=== PATIENT | male | born 1955 | race Caucasian/White ===

== ENCOUNTER 2017-08-21 11:15 | Emergency (ER) | payer BC ==
[2017-08-21 11:25] VITALS: BP 197/89
--- NOTE | 2017-08-21 13:30 | UC ---
Ear Complaint HPI - HPI Summary HPI Summary: 62 y/o male with 3 day history of feeling "maria t", c/o L ear pain, wheezing this AM which cleared with coughing, neck pain starting sunday radiating into scapula, cough= clear phlegm, + chills/ ? fever at night, none during day. L ear pain 3/10, L neck pain = dull ache, over shoulder. cough worse in AM, no selling, no sinus congestions, h/o IA 3 years ago following w Dr berger, last EKG 03/2017. no h/o asthma, smoking. - History of Current Complaint Chief Complaint: UCGeneralIllness Stated Complaint: ACHES, AND EAR ACHE Time Seen by Provider: 08/21/17 12:39 Hx Obtained From: Patient Onset/Duration: Gradual Onset, Lasting Days Severity Initially: Mild Severity Currently: Mild Pain Intensity: 1 Pain Scale Used: 0-10 Numeric - Allergies/Home Medications Allergies/Adverse Reactions: Allergies Allergy/AdvReac Type Severity Reaction Status Date / Time latex Allergy Hives Verified 08/21/17 14:33 Home Medications: Home Medications Cholecalciferol (Vitamin D3) [Vitamin D3] 2,000 mg PO BEDTIME 08/21/17 [History Confirmed 08/21/17] Metoprolol Tartrate 75 mg PO BEDTIME 08/21/17 [History Confirmed 08/21/17] PMH/Surg Hx/FS Hx/Imm Hx Previously Healthy: Yes - Surgical History Surgical History: Yes Surgery Procedure, Year, and Place: HERNIA REPAIR [id number]. BUNIONECTOMY- RIGHT [id number] - Social History Alcohol Use: None Substance Use Type: None Smoking Status (MU): Never Smoked Tobacco - Immunization History Most Recent Influenza Vaccination: Fall 2013 Most Recent Tetanus Shot: unk Most Recent Pneumonia Vaccination: NEVER Review of Systems Constitutional: Chills, Fatigue ENT: Ear Ache Respiratory: Cough, Other - wheezing Is Patient Immunocompromised?: No All Other Systems Reviewed And Are Negative: Yes Physical Exam Triage Information Reviewed: Yes Appearance: Well-Appearing, No Pain Distress, Well-Nourished Vital Signs: Initial Vital Signs Temp 96.3 F 08/21/17 11:21 Pulse 72 08/21/17 11:21 Resp 20 08/21/17 11:21 BP 197/89 08/21/17 11:21 Pulse Ox 99 03/20/18 11:21 Vital Signs Reviewed: Yes Eyes: Positive: Conjunctiva Clear ENT: Positive: Pharyngeal erythema - minimal, TM dull - fluid behind TM L ear, minimal erythema around TM., Uvula midline. Negative: Nasal drainage, Sinus tenderness Neck: Positive: Supple, No Lymphadenopathy, Tenderness @ - tenderness along SCM L side. Negative: Nuchal Rigidity, Enlarged Nodes @ Respiratory: Positive: Chest non-tender, Lungs clear, Normal breath sounds, No respiratory distress, No accessory muscle use. Negative: Crackles, Rhonchi, Stridor, Wheezing Cardiovascular: Positive: No Murmur, Pulses Normal, Other: - irregularly irregular rate. Abdomen Description: Negative: CVA Tenderness (R), CVA Tenderness (L) Psychological Exam: Normal Skin Exam: Normal Ear Complaint Course/Dx - Course Course Of Treatment: EKG reviewed with Dr. Foster, last EKG 2013- changes with OR interval, T changes, irregular rate, patient sent to ER for further evaluation. - Differential Dx/Diagnosis Provider Diagnoses: L neck pain Discharge - Sign-Out/Discharge Documenting (check all that apply): Discharge - Discharge Plan Condition: Good Disposition: HOME Patient Education Materials: Chest Pain (ED) Referrals: Sherrell VARGAS,Cristofer Jones [Primary Care Provider] - Kailash Mccann MD [Medical Doctor] - Additional Instructions: - Patient to follow up in ER for abnormal EKG findings - Billing Disposition and Condition Condition: GOOD Disposition: HOME
== END 2017-08-21 13:22 | disposition home or self-care (01) ==
LOC: UCEAST 11:15
DX: M54.2 Cervicalgia (principal); M25.512 Pain in left shoulder; I47.1 Supraventricular tachycardia; I45.10 Unspecified right bundle-branch block; H92.02 Otalgia, left ear; R05 Cough; R53.83 Other fatigue; Z91.040 Latex allergy status
CPT/HCPCS: 93005; 99211; G0463

== ENCOUNTER 2017-08-21 14:29 | Emergency (ER) | payer BC ==
[2017-08-21 16:00] LABS: INR 0.96 (0.77-1.02)
[2017-08-21 16:14] LABS: EGFR Non-African American 57.3 (>60)
--- NOTE | 2017-08-21 16:23 | RAD ---
HISTORY: Left-sided neck pain, flulike symptoms COMPARISONS: April 23, 2014 VIEWS: 1: frontal portable view of the chest at 3:59 PM FINDINGS: LINES AND TUBES: None. CARDIOMEDIASTINAL SILHOUETTE: The cardiac silhouette is mildly enlarged. The cardiomediastinal silhouette is otherwise normal for portable technique. PLEURA: The costophrenic angles are sharp. No pleural abnormalities are noted. LUNG PARENCHYMA: The lungs are clear. ABDOMEN: The upper abdomen is clear. There is no subphrenic gas. BONES AND SOFT TISSUES: No bone or soft tissue abnormalities are noted. IMPRESSION: MILD CARDIOMEGALY
[2017-08-21 16:24] LABS: ABS Basophils 0 10^3/ul (0-0.2); ABS Eosinophils 0 10^3/ul (0-0.6); ABS Lymphocytes 1.2 10^3/ul (1.0-4.8); ABS Monocytes 0.6 10^3/ul (0-0.8); ABS Neutrophils 5.9 10^3/ul (1.5-7.7); ABS Nucleated RBC 0 10^3/ul; Eosinophil % 0.5 % (0-6); Hematocrit 43 % (42-52); Hemoglobin 14.4 g/dl (14.0-18.0); Lymphocyte % 15.1 % (25-47); Mean Corpuscular HGB Conc 33 g/dl (31-36); Mean Corpuscular Hemoglobin 30 pg (27-31); Mean Corpuscular Volume 91 fL (80-94); Mean Platelet Volume 12 um3 (7.4-10.4); Nucleated Red Blood Cells % 0; Platelet Count 90 10^3/ul (150-450); Red Blood Count 4.76 10^6/ul (4.0-5.4); Red Cell Distribution Width 13 % (10.5-15); White Blood Count 7.8 10^3/ul (3.5-10.8)
[2017-08-21] MEDS ORDERED: NS 0.9% 1000 ML* 1,000 ML IV ONE (16:51)
[2017-08-21] MEDS ORDERED: Iodixanol* (CONTRAST) 320 MG/ML 100 ML SDV IV ONE (17:14)
--- NOTE | 2017-08-21 17:38 | RAD ---
HISTORY: Left upper chest pain, neck pain COMPARISONS: None TECHNIQUE: Multiple contiguous axial CT scans of the chest were obtained after the administration of nonionic intravenous contrast, timed to the pulmonary arterial phase of contrast enhancement.. Coronal and sagittal multiplanar reformations are also submitted for review. FINDINGS: NECK AND THYROID: The lower neck and thyroid are unremarkable. CHEST WALL: There is no lower cervical, axillary, or supraclavicular lymphadenopathy by size criteria. HEART AND PERICARDIUM: There is right atrial and right ventricular enlargement. A coronary stent is noted. AORTA AND PULMONARY VASCULATURE: There is no pulmonary arterial filling defect to suggest pulmonary embolism. There is no linear filling defect within the aorta to suggest aortic dissection. There is fusiform enlargement of the pulmonary arteries bilaterally. MEDIASTINUM: There is no mediastinal lymphadenopathy by size criteria. LORIE: There is no hilar lymphadenopathy by size criteria. AIRWAY AND ESOPHAGUS: The esophagus is patulous. LUNG PARENCHYMA: The lungs are clear. PLEURA: No pleural abnormalities are noted. UPPER ABDOMEN: The upper abdomen is unremarkable. BONES AND SOFT TISSUES: Mild degenerative changes are noted OTHER: None. IMPRESSION: NO PULMONARY ARTERIAL FILLING DEFECT TO SUGGEST PULMONARY EMBOLISM. THERE IS RIGHT HEART ENLARGEMENT WITH ENLARGEMENT OF THE PULMONARY ARTERIES SUGGESTIVE OF PULMONARY ARTERIAL HYPERTENSION.
--- NOTE | 2017-08-21 18:13 | RAD ---
HISTORY: Neck pain COMPARISONS: None TECHNIQUE: Multiple contiguous axial CT scans were obtained of the head, before and after, and of the neck after the administration of nonionic intravenous contrast timed to the systemic arterial phase of contrast enhancement. Coronal and sagittal multiplanar reformations are submitted for review. Multiple 3-D maximum intensity projection reconstructions are also submitted for review. FINDINGS: CTA NECK: AORTIC ARCH: There is a normal three-vessel branching pattern of the aortic arch. There is no ostial or proximal stenosis of the cephalic great vessels. RIGHT VERTEBRAL ARTERY: The right vertebral artery is patent along its course, without stenosis. LEFT VERTEBRAL ARTERY: The left vertebral artery is patent along its course, without stenosis. DOMINANCE: The vertebral arteries are codominant. RIGHT COMMON CAROTID ARTERY: The right common carotid artery is patent. The right carotid bifurcation occurs at C3-C4 RIGHT INTERNAL CAROTID ARTERY: There is no right internal carotid artery stenosis by NASCET criteria. RIGHT EXTERNAL CAROTID ARTERY: The right external carotid artery is unremarkable. LEFT COMMON CAROTID ARTERY: The left common carotid artery is patent. The left carotid bifurcation occurs at C3-C4 LEFT INTERNAL CAROTID ARTERY: There is no left internal carotid artery stenosis by NASCET criteria. LEFT EXTERNAL CAROTID ARTERY: The left external carotid artery is unremarkable. VENOUS CIRCULATION: The venous system is unremarkable. SALIVARY GLANDS: The parotid glands, submandibular glands, sublingual glands are normal. NASAL CAVITY/NASOPHARYNX: The nasal cavity and nasopharynx are normal. ORAL CAVITY/OROPHARYNX: The oral cavity is obscured by streak artifact from dental amalgam. The visualized oral cavity and oropharynx are unremarkable. LARYNGEAL APPARATUS/HYPOPHARYNX: The laryngeal apparatus and hypopharynx are normal. UPPER AIRWAY/UPPER ESOPHAGUS: The visualized upper airway and esophagus are normal. LUNG APICES: The lung apices are clear. THYROID GLAND: The thyroid gland is normal. LYMPH NODES: There is no lymphadenopathy by size criteria. BONES AND SOFT TISSUES: No bone or soft tissue abnormalities are noted. CTA HEAD: INTRACRANIAL CIRCULATION: There is no aneurysm, vascular malformation, occlusion, or stenosis of the visualized intracranial circulation. The anterior communicating artery complex is clear. Bilateral posterior communicating arteries are identified. VENOUS CIRCULATION: The venous system is unremarkable. PERFUSION: There is no obvious parenchymal perfusion deficit. HEMORRHAGE/INFARCT: There is no hemorrhage or acute infarct. MASSES/SHIFT: There is no mass or shift. EXTRA-AXIAL SPACES: There are no extra-axial fluid collections. SULCI AND VENTRICLES: The sulci and ventricles are normal in size and position for the patient's stated age. CEREBRUM: There are no focal parenchymal abnormalities. BRAINSTEM: There are no focal parenchymal abnormalities. CEREBELLUM: There are no focal parenchymal abnormalities. PARANASAL SINUSES: The paranasal sinuses are clear. ORBITS: The orbits are unremarkable. BONES AND SOFT TISSUE: Degenerative changes noted of the spine OTHER: There is no abnormal enhancement. IMPRESSION: 1. NO INTERNAL CAROTID ARTERY STENOSIS BY NASCET CRITERIA. 2. NO ANEURYSM, VASCULAR MALFORMATION, OCCLUSION, OR STENOSIS OF THE VISUALIZED INTRACRANIAL CIRCULATION. CPT II Codes: 3100F
[2017-08-21] MEDS ORDERED: Magnesium Sulfate 2 GM IV* 2 GM/50 ML BAG IVPB ONE (18:18)
--- NOTE | 2017-08-21 19:04 | ED ---
Sergei Sawyer Stephanie, scribed for Kilo Freeman MD on 08/21/17 at 1515 . HPI Cardiac - HPI Summary HPI Summary: The pt is a 62 y/o M sent to the ED from with c/o productive cough that began 1 month ago. Symptoms include L neck pain and L ear ache. The pt states he recently did a shoulder workout which may be the source of the pain. The pt states he felt like garbage and like he was coming down with a cold. The pt denies nausea or worsening symptoms with movement. He has hx of MD. The pt states he was sent by due to an abnormal EKG. - History of Current Complaint Chief Complaint: EDFluSymptoms Stated Complaint: FLU LIKE SYMPTOMS-SENT FROM Time Seen by Provider: 08/21/17 15:00 Hx Obtained From: Patient Onset/Duration: Started Weeks Ago - 4, Still Present Timing: Constant Current Severity: Moderate Pain Intensity: 0 Pain Scale Used: 0-10 Numeric Chest Pain Radiates: Yes Chest Pain Radiates To:: Shoulder - L, Neck - L side Aggravating Factor(s): Nothing Alleviating Factor(s): Nothing Associated Signs and Symptoms: Positive: Cough, Other: - L shoulder pain, L sided neck pain. Negative: Nausea - Allergy/Home Medications Allergies/Adverse Reactions: Allergies Allergy/AdvReac Type Severity Reaction Status Date / Time latex Allergy Hives Verified 08/21/17 14:33 PMH/Surg Hx/FS Hx/Imm Hx Endocrine/Hematology History: Denies: Hx Diabetes, Hx Thyroid Disease Cardiovascular History: Reports: Hx Angina, Hx Coronary Artery Disease, Hx Hypercholesterolemia, Hx Hypertension, Hx Myocardial Infarction, Other Cardiovascular Problems/Disorders - HI CHOLESTEROL Denies: Hx Valvular Heart Disease Respiratory History: Denies: Hx Asthma, Hx Chronic Obstructive Pulmonary Disease (COPD) GI History: Reports: Hx Gastroesophageal Reflux Disease Denies: Hx Ulcer History: Reports: Hx Benign Prostatic Hyperplasia Musculoskeletal History: Reports: Hx Arthritis - RIGHT KNEE, Other Musculoskeletal History - TORN MENISCUS RIGHT KNEE Sensory History: Reports: Hx Contacts or Glasses Denies: Hx Hearing Aid Opthamlomology History: Reports: Hx Contacts or Glasses - Surgical History Surgery Procedure, Year, and Place: HERNIA REPAIR [id number]. BUNIONECTOMY- RIGHT [id number] Hx Anesthesia Reactions: No Infectious Disease History: No Infectious Disease History: Denies: Hx Hepatitis, Hx Human Immunodeficiency Virus (HIV), Traveled Outside the [place] in Last 30 Days - Family History Known Family History: Positive: Cardiac Disease, Hypertension - Social History Occupation: Employed Part-time Lives: With Family Alcohol Use: None Substance Use Type: Reports: None Smoking Status (MU): Never Smoked Tobacco Review of Systems Negative: Fever Positive: Cough Negative: Nausea Positive: Other - L sided neck pain, L shoulder pain All Other Systems Reviewed And Are Negative: Yes Physical Exam - Summary Physical Exam Summary: General: well-appearing, no pain distress Skin: warm, color reflects adequate perfusion, dry Head: normal Eyes: EOMI, OSMAR ENT: normal Neck: supple, Tender to palpation in posterior L lateral neck. Respiratory: CTA, breath sounds present Cardiovascular: HR irregular Abdomen: soft, nontender Bowel: present Musculoskeletal: normal, strength/ROM intact Neurological: normal, sensory/motor intact, A&O x3 Psychological: affect/mood appropriate Triage Information Reviewed: Yes Vital Signs On Initial Exam: Initial Vitals Temp Pulse Resp BP Pulse Ox 98.0 F 55 16 162/87 98 08/21/17 14:33 08/21/17 14:33 08/21/17 14:33 08/21/17 14:33 08/21/17 14:33 Vital Signs Reviewed: Yes Diagnostics - Vital Signs Vital Signs Temp Pulse Resp BP Pulse Ox 08/21/17 14:33 98.0 F 55 16 162/87 98 - Laboratory Lab Results: Lab Results 08/21/17 08/21/17 08/21/17 Range/Units 15:38 15:38 15:38 WBC 7.8 (3.5-10.8) 10^3/ul RBC 4.76 (4.0-5.4) 10^6/ul Hgb 14.4 (14.0-18.0) g/dl Hct 43 (42-52) % MCV 91 (80-94) fL MCH 30 (27-31) pg MCHC 33 (31-36) g/dl RDW 13 (10.5-15) % Plt Count 90 L (150-450) 10^3/ul MPV 12 H (7.4-10.4) um3 Neut % (Auto) 75.9 (38-83) % Lymph % (Auto) 15.1 L (25-47) % Cannon % (Auto) 7.9 H (0-7) % Eos % (Auto) 0.5 (0-6) % Baso % (Auto) 0.6 (0-2) % Absolute Neuts (auto) 5.9 (1.5-7.7) 10^3/ul Absolute Lymphs (auto) 1.2 (1.0-4.8) 10^3/ul Absolute Monos (auto) 0.6 (0-0.8) 10^3/ul Absolute Eos (auto) 0 (0-0.6) 10^3/ul Absolute Basos (auto) 0 (0-0.2) 10^3/ul Absolute Nucleated RBC 0 10^3/ul Nucleated RBC % 0 INR (Anticoag Therapy) 0.96 (0.77-1.02) APTT 28.0 (26.0-36.3) seconds D-Dimer, Quantitative 809 H (Less Than 230) ng/mL Sodium 139 (133-145) mmol/L Potassium 3.9 (3.5-5.0) mmol/L Chloride 105 (101-111) mmol/L Carbon Dioxide 27 (22-32) mmol/L Anion Gap 7 (2-11) mmol/L BUN 18 (6-24) mg/dL Creatinine 1.27 H (0.67-1.17) mg/dL Est GFR ( Amer) 73.7 (>60) Est GFR (Non-Af Amer) 57.3 (>60) BUN/Creatinine Ratio 14.2 (8-20) Glucose 95 (70-100) mg/dL Calcium 9.4 (8.6-10.3) mg/dL Magnesium Pending Total Bilirubin 1.00 (0.2-1.0) mg/dL AST 22 (13-39) U/L ALT 25 (7-52) U/L Alkaline Phosphatase 53 (34-104) U/L Troponin I 0.00 (<0.04) ng/mL C-Reactive Protein 2.32 (< 5.00) mg/L Total Protein 6.4 (6.4-8.9) g/dL Albumin 3.9 (3.2-5.2) g/dL Globulin 2.5 (2-4) g/dL Albumin/Globulin Ratio 1.6 (1-3) Result Diagrams: 08/21/17 15:38 08/21/17 15:38 Lab Statement: Any lab studies that have been ordered have been reviewed, and results considered in the medical decision making process. - Radiology CXR Xray Interpretation: Positive (See Comments) Radiology Interpretation Completed By: Radiologist - MILD CARDIOMEGALY. ED physician reviewed and agrees with this report. - CT CTA Chest/Thorax CT Interpretation: Positive (See Comments) CT Interpretation Completed By: Radiologist - NO PULMONARY ARTERIAL FILLING DEFECT TO SUGGEST PULMONARY EMBOLISM. THERE IS RIGHT HEART ENLARGEMENT WITH ENLARGEMENT OF THE PULMONARY ARTERIES SUGGESTIVE OF PULMONARY ARTERIAL HYPERTENSION. ED physician has reviewed and agrees with this report. CTA Head CT Interpretation Completed By: Radiologist - 1. NO INTERNAL CAROTID ARTERY STENOSIS BY NASCET CRITERIA. 2. NO ANEURYSM, VASCULAR MALFORMATION, OCCLUSION, OR STENOSIS OF THE VISUALIZED INTRACRANIAL CIRCULATION. CPT II Codes: 3100F. ED physician has reviewed this report and agrees. - EKG 14:34 Cardiac Rate: NL EKG Rhythm: Sinus Rhythm - 96 BPM Ectopy: PVCs, PACs 17:35 Cardiac Rate: NL EKG Rhythm: Sinus Rhythm - 93 BPM Ectopy: PVCs Disposition - Course Course Of Treatment: BP noted and advised to follow up with PCP. DISCUSSED WITH DR HENDERSON, CARDIOLOGY. HE RECOMMENDS A SECOND TROPONIN. DISCUSSED RESULTS WITH PATIENT AND FAMILY. F/U WITH DR MOORE; RETURN IF WORSE. - Diagnoses Provider Diagnoses: HTN (hypertension), PVCs (premature ventricular contractions), Neck pain, Ear ache Discharge - Sign-Out/Discharge Documenting (check all that apply): Discharge - Discharge Plan Condition: Stable Disposition: HOME Patient Education Materials: Earache (ED), Premature Ventricular Contractions ( ED), Neck Pain (ED) Referrals: Sherrell VARGAS,Cristofer Jones [Primary Care Provider] - Additional Instructions: FOLLOW UP WITH DR MOORE. RETURN TO THE EMERGENCY DEPARTMENT FOR ANY WORSENING OF YOUR CONDITION OR QUESTIONS OR CONCERNS. YOUR BLOOD PRESSURE WAS ELEVATED TODAY; FOLLOW UP WITH YOUR PRIMARY CARE DOCTOR WITHIN ONE WEEK. - Billing Disposition and Condition Condition: STABLE Disposition: HOME The documentation as recorded by the Sergei lopez Stephanie accurately reflects the service I personally performed and the decisions made by me, Kilo Freeman MD.
--- NOTE | 2017-08-21 20:37 | RAD ---
HISTORY: Bilateral pedal edema COMPARISONS: None relevant TECHNIQUE: Multiple transverse and longitudinal ultrasound images were obtained of the bilateral lower extremities from the level of the common femoral vein inferiorly through to the infrapopliteal veins using grayscale, color Doppler, and spectral Doppler imaging with and without compression and with augmentation. FINDINGS: VEINS: There is partially occlusive thrombus of the right popliteal vein. The remainder of the venous system of the bilateral lower extremities is compressible throughout its course, with normal flow on color Doppler imaging and normal response to augmentation on spectral Doppler imaging. SOFT TISSUES: Unremarkable. OTHER FINDINGS: None. IMPRESSION: 1. PARTIALLY OCCLUSIVE THROMBUS OF THE RIGHT POPLITEAL VEIN. 2. NO LEFT LOWER EXTREMITY DEEP VEIN THROMBOSIS.
[2017-08-21] MEDS ORDERED: Rivaroxaban TAB(*) 15 MG PO ONE (21:50)
--- NOTE | 2017-08-21 22:16 | ED ---
IRuchi Thomas, scribed for Gabriela Moseley MD on 08/21/17 at 2201 . Progress - Progress Note Progress Note: The patient is a sign out from Dr. Freeman at shift change, pending lower extremity ultrasound. Bilateral lower extremity venous ultrasound: Interpreted by radiologist. Impression: Partially occlusive thrombus of the right popliteal vein. 2. No left lower extremity DVT. Dr. Moseley has reviewed this report. The patient has a right lower extremity DVT. I discussed with the patient the option of staying in the hospital or going home. The patient would like to be discharged home with close outpatient follow up and a prescription for Xarelto. 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 He was provided a work note and was instructed to return for new or worsening symptoms. Re-Evaluation - Re-Evaluation First Eval Re-Evaluation Time: 22:09 Comment: Results discussed. Patient will be discharged with cardiology and PMD follow up. Course/Dx - Diagnoses Provider Diagnoses: Right lower extremity DVT Discharge - Sign-Out/Discharge Documenting (check all that apply): Receiving Sign-Out Receiving patient FROM: Kilo Freeman - Discharge Plan Condition: Stable Disposition: HOME Prescriptions: Rivaroxaban TAB(*) [Xarelto 15 mg(*)] 15 mg PO BID #42 tab Patient Education Materials: Deep Vein Thrombosis (ED) Forms: *Work Release Referrals: Sherrell VARGAS,Cristofer Jones [Primary Care Provider] - 08/22/17 Kailash Mccann MD [Medical Doctor] - 08/22/17 Additional Instructions: Follow up with Dr. Mccann and Dr. Wynne tomorrow, 08/22/17. Return to the emergency department for any new or worsening symptoms. The documentation as recorded by the Ruchi lopez Thomas accurately reflects the service I personally performed and the decisions made by me, Gabriela Moseley MD.
[2017-08-21 22:25] VITALS: BP 130/74
== END 2017-08-21 22:59 | disposition home or self-care (01) ==
LOC: ED 14:29
DX: M54.2 Cervicalgia (principal); H92.02 Otalgia, left ear; I49.3 Ventricular premature depolarization; I10 Essential (primary) hypertension; I82.431 Acute embolism and thrombosis of right popliteal vein; I51.7 Cardiomegaly; I47.2 Ventricular tachycardia; R05 Cough; M25.512 Pain in left shoulder; I25.119 Atherosclerotic heart disease of native coronary artery with unspecified angina pectoris; I25.2 Old myocardial infarction; K21.9 Gastro-esophageal reflux disease without esophagitis; N40.0 Benign prostatic hyperplasia without lower urinary tract symptoms; Z91.040 Latex allergy status
CPT/HCPCS: 36415; 70496; 70498; 71045; 71275; 80053; 83735; 84484; 85025; 85379; 85610; 85730; 86140; 93005; 93970; 96365; 99283; J3475; Q9967

== ENCOUNTER → 2017-09-25 10:05 | Day surgery (SDC) | payer BC ==
[~2017-09-25 10:05] MED LIST: Diazepam TAB(*) 5 MG ONE; Heparin 2 UNITS/ML IVPREMIX* 3,000 ML IV ONE; Heparin(*) 1000 UNIT/ML 10 ML VIAL CATH LAB IV ONE; Iohexol 350 (CONTRAST) 200 ML MDV IV ONE; Lidocaine 1% INJ* 10 MG/ML 30 ML SDV ONE; Midazolam* 1 MG/ML 10 ML VIAL (10 MG) ONE; NS 0.9% 1000 ML* 1,000 ML IV SCH; VERAPAMIL 2.5 MG/ML 2 ML VIAL ** 5 mg/2 ml ONE; diPHENhydraMINE PO* 25 MG ONE; fentaNYL* 50 MCG/ML 2 ML VIAL (100 MCG VIAL) ONE; nitroGLYCERIN DRIP* 25,000 MCG/250 ML BTL ONE
[2017-09-25 14:11] VITALS: BP 130/73
--- NOTE | 2017-09-26 10:51 | CATH ---
CC: Dimas Cardona MD; Mor Cotter MD Department of Electrophysiology at [place], [place].* CARDIAC CATHETERIZATION REPORT: DATE OF PROCEDURE: 09/25/17 INDICATION FOR THE PROCEDURE: The patient with a known history of coronary artery disease with exercise-induced ventricular tachycardia, assessed for progression in coronary artery disease. PROCEDURE: Coronary arteriography, left heart catheterization, left ventriculography. Patient was examined and interviewed in the office where the risks and benefits were explained to him, he understood them and wished to proceed. The patient was brought to the cardiovascular laboratory where a formal time- out was performed. The patient was prepped and draped in a sterile fashion. The right radial artery had already been assessed by ultrasound in the holding area and found to be acceptable for an approach and as such the right radial artery area was prepped and draped in sterile fashion and anesthetized with 1% lidocaine. The right femoral artery was cannulated under ultrasound guidance and a 6-Icelandic Glidesheath was placed. Coronary arteriography was performed utilizing a TIG 4 5- Icelandic catheter for the right coronary artery and a 5- Icelandic FL3.5 curve for the left coronary artery. Central aortic pressure and left ventriculography was performed using a 5-Icelandic pigtail Performa to radial artery. At the end of the case, the catheters were removed and a Vasc Band was placed. The patient was in stable condition. MEDICATIONS: Medications given during the cardiac catheterization had included intravenous Versed as well as a radial artery cocktail including 3000 units of heparin, 300 micrograms of nitroglycerin and 3 mg of verapamil. The patient had already received Benadryl and Valium for sedation orally in the holding area. The total contrast used was 75 cc of Omnipaque dye. The radiation exposure included 8.3 minutes of fluoro time. The air kerma radiation was 757 milligray. The DAP radiation was 5131 microgray/sq.m. RESULTS: HEMODYNAMIC DATA: Left heart catheterization - revealed central aortic pressure recorded at 102 /56 with a mean of 75. The left ventricular pressure 102 over left ventricular and diastolic pressure of 19. LEFT VENTRICULOGRAPHY: Performed in the BOWMAN projection revealed severe hypokinesis of the mid to distal anterior lateral wall. There was mild hypokinesis of the distal anterior wall in apical region. The inferior wall was low normal in contractility. The overall ejection fraction was estimated at approximately 40% . No significant mitral regurgitation was noted. CORONARY ARTERIOGRAPHY: A. Left coronary artery: 1. Left main - widely patent. 2. Left anterior descending artery - the left anterior descending artery had no significant stenosis throughout the course of the vessel as it traversed to the apical region. The area of prior stenting was widely patent with no evidence of in- stent restenosis. The second diagonal branch was a small caliber vessel extending across the anterolateral region and revealed a FELISA 3 flow, but a significant 90% stenosis at its origin. The first diagonal branch had a mild 25% to 30% proximal narrowing. 3. Circumflex artery - a codominant vessel supplying a moderate size mid obtuse marginal branch, which had an area of 30% in its proximal portion, the continuation of this vessel had a 30% distal lesion before several low lying posterior left ventricular branches, the last of which parallel the right-sided posterior descending artery. B. Right coronary artery - a dominant vessel supplying several acute marginal branches with a low-lying acute marginal branch paralleling the PDA as well as a small caliber PDA. There was moderate disease in the proximal portion , noted to be sequential 55% and 45% to 50% lesions. The rest of the vessel had no significant narrowing. OVERALL ASSESSMENT: Moderate coronary artery disease involving the proximal right coronary artery with a critical 90% lesion seen in a small caliber (non- interventional) second diagonal branch. Of note, FELISA flow is noted in this, and comparing it to his prior cardiac catheterization done at [facility], the flow in this diagonal branch is much brisker as that was at best FELISA 2 flow. Moderate left ventricular systolic dysfunction as described above. Continued aggressive medical management in consideration of suppression of ventricular ectopic activity will be entertained with consultation with Dr. Mor Cotter from [facility] Electrophysiology Department. [id number]/[facility] #: [id number] [facility]ITAL[facility]
== END | disposition home or self-care (01) ==
LOC: CHICATH 10:05
PROVIDERS: ATTEND Internal Medicine Cardiovascular Disease
DX: I25.5 Ischemic cardiomyopathy (principal); I49.3 Ventricular premature depolarization; Z79.01 Long term (current) use of anticoagulants; I25.10 Atherosclerotic heart disease of native coronary artery without angina pectoris; I45.10 Unspecified right bundle-branch block; I10 Essential (primary) hypertension; I47.1 Supraventricular tachycardia; I47.2 Ventricular tachycardia; E78.5 Hyperlipidemia, unspecified; I25.2 Old myocardial infarction; E78.00 Pure hypercholesterolemia, unspecified; K21.9 Gastro-esophageal reflux disease without esophagitis
CPT/HCPCS: 76937; 93458; A9270-GY; C1769; J1644; J2250; J3010

== ENCOUNTER 2017-12-12 10:59 | Emergency (ER) | payer BC, OTHER ==
[2017-12-12 11:40] VITALS: BP 135/68
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
== END 2017-12-12 12:18 | disposition home or self-care (01) ==
LOC: UCCORT 10:59
DX: S80.12XA Contusion of left lower leg, initial encounter (principal); S20.222A Contusion of left back wall of thorax, initial encounter; S80.212A Abrasion, left knee, initial encounter; R10.32 Left lower quadrant pain; I10 Essential (primary) hypertension; Z91.040 Latex allergy status; V29.9XXA Motorcycle rider (driver) (passenger) injured in unspecified traffic accident, initial encounter; Y93.89 Activity, other specified; Y92.9 Unspecified place or not applicable
CPT/HCPCS: 99211; G0463

== ENCOUNTER 2017-12-17 09:11 | Emergency (ER) | payer OTHER ==
[2017-12-17 09:19] VITALS: BP 132/71
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
== END 2017-12-17 09:40 | disposition home or self-care (01) ==
LOC: UCEAST 09:11
DX: S80.12XA Contusion of left lower leg, initial encounter (principal); S20.222A Contusion of left back wall of thorax, initial encounter; V29.9XXA Motorcycle rider (driver) (passenger) injured in unspecified traffic accident, initial encounter; Y93.89 Activity, other specified; Y92.9 Unspecified place or not applicable; R31.9 Hematuria, unspecified; I25.2 Old myocardial infarction; I10 Essential (primary) hypertension; Z79.01 Long term (current) use of anticoagulants; K21.9 Gastro-esophageal reflux disease without esophagitis; Z82.49 Family history of ischemic heart disease and other diseases of the circulatory system; Z91.040 Latex allergy status
CPT/HCPCS: 99212; G0463

== ENCOUNTER 2017-12-17 10:09 | Emergency (ER) | payer OTHER ==
[2017-12-17 10:31] LABS: ABS Basophils 0 10^3/ul (0-0.2); ABS Eosinophils 0.1 10^3/ul (0-0.6); ABS Monocytes 0.9 10^3/ul (0-0.8); ABS Neutrophils 6.5 10^3/ul (1.5-7.7); ABS Nucleated RBC 0 10^3/ul; Eosinophil % 1.2 % (0-6); Hematocrit 41 % (42-52); Hemoglobin 13.7 g/dl (14.0-18.0); Lymphocyte % 11.7 % (25-47); Mean Corpuscular HGB Conc 34 g/dl (31-36); Mean Corpuscular Hemoglobin 31 pg (27-31); Mean Corpuscular Volume 91 fL (80-94); Mean Platelet Volume 11.2 um3 (7.4-10.4); Nucleated Red Blood Cells % 0; Platelet Count 108 10^3/ul (150-450); Red Blood Count 4.49 10^6/ul (4.00-5.40); Red Cell Distribution Width 14 % (10.5-15); White Blood Count 8.5 10^3/ul (3.5-10.8)
[2017-12-17 10:52] LABS: EGFR Non-African American 64.9 (>60)
[2017-12-17 11:28] VITALS: BP 122/67
--- NOTE | 2017-12-17 11:35 | RAD ---
Occasional: Left leg injury. 2 views of the left lower leg demonstrates no fracture. No other bone or joint abnormality is identified. IMPRESSION: No fracture of the left lower leg.
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
== END 2017-12-17 11:26 | disposition home or self-care (01) ==
LOC: ED 10:09
DX: S20.222A Contusion of left back wall of thorax, initial encounter (principal); S80.02XA Contusion of left knee, initial encounter; S20.212A Contusion of left front wall of thorax, initial encounter; V22.4XXA Motorcycle driver injured in collision with two- or three-wheeled motor vehicle in traffic accident, initial encounter; Y93.89 Activity, other specified; Y92.410 Unspecified street and highway as the place of occurrence of the external cause; T45.515A Adverse effect of anticoagulants, initial encounter; Y92.9 Unspecified place or not applicable; I48.91 Unspecified atrial fibrillation; Z79.01 Long term (current) use of anticoagulants; I25.119 Atherosclerotic heart disease of native coronary artery with unspecified angina pectoris; I10 Essential (primary) hypertension; I25.2 Old myocardial infarction; E78.00 Pure hypercholesterolemia, unspecified; K21.9 Gastro-esophageal reflux disease without esophagitis; N40.0 Benign prostatic hyperplasia without lower urinary tract symptoms; Z91.040 Latex allergy status; Z82.49 Family history of ischemic heart disease and other diseases of the circulatory system
CPT/HCPCS: 36415; 80053; 82550; 85025; 99282

== ENCOUNTER 2018-02-27 16:15 | Emergency (ER) | payer BC ==
[2018-02-27 16:45] VITALS: BP 152/86
--- NOTE | 2018-02-27 17:09 | UC ---
Hand/Wrist HPI - HPI Summary HPI Summary: Patient is complaining of infection to the tip of his right index finger. He states it began yesterday. He notes that the fingertip is red, hot and swollen as well as tender. He notes that it is at the site of a scratch which he got while at work. He also reports that there may be a tiny metal shaving in the fingertip as well. He denies any difficulty with bending or straightening the finger. He does not actually have a foreign body sensation. He has no fever or chills. He denies history of MRSA and diabetes. tetanus was within the past year. - History Of Current Complaint Chief Complaint: UCGeneralIllness Stated Complaint: RIGHT INDEX FINGER INFECTION Time Seen by Provider: 02/27/18 17:01 Pain Intensity: 0 Alleviating Factor(s): Nothing Associated Signs And Symptoms: Positive: Swelling, Redness. Negative: Weakness , Numbness/Tingling - Allergies/Home Medications Allergies/Adverse Reactions: Allergies Allergy/AdvReac Type Severity Reaction Status Date / Time latex Allergy Hives Verified 02/27/18 16:46 PMH/Surg Hx/FS Hx/Imm Hx Cardiovascular History: Hypertension, Myocardial Infarction GI/ History: Gastroesophageal Reflux Other History Of: Anticoagulant Therapy - Surgical History Surgical History: Yes Surgery Procedure, Year, and Place: HERNIA REPAIR [id number]. BUNIONECTOMY- RIGHT [id number] - Family History Known Family History: Positive: Cardiac Disease, Hypertension - Social History Occupation: Employed Full-time Lives: With Family Alcohol Use: None Substance Use Type: None Smoking Status (MU): Never Smoked Tobacco Have You Smoked in the Last Year: No - Immunization History Most Recent Influenza Vaccination: Fall 2013 Most Recent Tetanus Shot: September 2017 Most Recent Pneumonia Vaccination: NEVER Hx Tetanus, Diphtheria Vaccination: Yes Vaccination Up to Date: Yes Review of Systems Constitutional: Negative Skin: Rash - tip R index finger Eyes: Negative ENT: Negative Respiratory: Negative Cardiovascular: Negative Gastrointestinal: Negative Genitourinary: Negative Motor: Negative Neurovascular: Negative Musculoskeletal: Negative Neurological: Negative Psychological: Negative Is Patient Immunocompromised?: No All Other Systems Reviewed And Are Negative: Yes Physical Exam Triage Information Reviewed: Yes Appearance: Well-Appearing Vital Signs: Initial Vital Signs Temp 97.5 F 02/27/18 16:42 Pulse 51 02/27/18 16:42 Resp 18 02/27/18 16:42 BP 152/86 02/27/18 16:42 Pulse Ox 100 02/27/18 16:42 Vital Signs Reviewed: Yes Eyes: Positive: Conjunctiva Clear ENT: Positive: Normal ENT inspection Neck: Positive: Supple, Nontender Respiratory: Positive: Lungs clear, Normal breath sounds Cardiovascular: Positive: RRR, No Murmur Abdomen Description: Positive: Nontender, No Organomegaly, Soft Bowel Sounds: Positive: Present Musculoskeletal: Positive: ROM Intact Neurological: Positive: Alert Psychological: Positive: Age Appropriate Behavior Skin Exam: Normal Skin: Positive: Other - R hand: tip of index on radial side has mild swelling, warmth, tenderness and pink discoloration. Central abrsion noted.Flexor tendon is non tender. Finger has full s/v/m function and no arthralgia. Rest of hand is unremarkable. Diagnostics - Laboratory Diagnostic Studies Completed/Ordered: R index finger, IMPRESSION: Soft tissue swelling without evidence of fracture. Hand/Wrist Course/Dx - Course Course Of Treatment: No concern for a flexor tenosynovitis, osteomyelitis, fracture or foreign body. No concern for a felon infection. - Differential Dx/Diagnosis Differential Diagnosis/HQI/PQRI: Felon, Foreign Body, Infection, Tenosynovitis Provider Diagnoses: skin infection R index finger. Discharge - Sign-Out/Discharge Documenting (check all that apply): Patient Departure All imaging exams completed and their final reports reviewed: Yes - Discharge Plan Condition: Stable Disposition: HOME Prescriptions: Cephalexin CAP* [Keflex CAP*] 500 mg PO TID 10 Days #30 cap Patient Education Materials: Cellulitis (ED) Referrals: Sherrell VARGAS,Cristofer Jones [Primary Care Provider] - 2 Days Additional Instructions: SOAK FINGER IN WARM SOAPY WATER 2-3 TIMES DAILY. GO TO THE ER IF THE INFECTION GETS WORSE. - Billing Disposition and Condition Condition: STABLE Disposition: Home
--- NOTE | 2018-02-27 17:50 | RAD ---
Indication: Right finger injury. 3 views of the right index finger demonstrates soft tissue swelling. There is no fracture or dislocation. No other bone or joint abnormality is identified. IMPRESSION: Soft tissue swelling without evidence of fracture.
== END 2018-02-27 18:13 | disposition home or self-care (01) ==
LOC: UCCORT 16:15
DX: L08.9 Local infection of the skin and subcutaneous tissue, unspecified (principal); Z91.040 Latex allergy status
CPT/HCPCS: 73140; 99212; G0463

== ENCOUNTER 2018-03-01 10:06 | Emergency (ER) | payer BC, OTHER ==
[2018-03-01] MEDS ORDERED: cefTRIAXone(*) 1 GM in NS 0.9% 50 ML* 50 ML IVPB ONE (10:41)
--- NOTE | 2018-03-01 10:45 | ED ---
Upper Extremity Pain - HPI Summary HPI Summary: Patient is a 62 y/o female who presents to the ED c/o right finger pain. He states he got a metal sliver lodged in his right index finger while using a machine at work. Patient went to the 2 days ago, and the metal was removed and an XR confirmed there was no metal in his finger. The swelling and pain has become worse since, and he now believes his finger to be infected. Patient has been on antibiotics, and has had 4 doses. - History of Current Complaint Chief Complaint: EDExtremityUpper Stated Complaint: RT INDEX FINGER SWELLING Time Seen by Provider: 03/01/18 10:36 Hx Obtained From: Patient Mechanism Of Injury: Penetrating Trauma - Metal shard Onset/Duration: Started Days Ago - 3, Worse Since Timing: Constant Pain Location: Finger - Right index Associated Signs & Symptoms: Positive: Swelling, Redness. Negative: Numbness/ Tingling Related History: Occupational Injury - Allergies/Home Medications Allergies/Adverse Reactions: Allergies Allergy/AdvReac Type Severity Reaction Status Date / Time latex Allergy Hives Verified 03/01/18 10:35 PMH/Surg Hx/FS Hx/Imm Hx Endocrine/Hematology History: Reports: Hx Anticoagulant Therapy Denies: Hx Diabetes, Hx Thyroid Disease Cardiovascular History: Reports: Hx Angina, Hx Coronary Artery Disease, Hx Hypercholesterolemia, Hx Hypertension, Hx Myocardial Infarction, Other Cardiovascular Problems/Disorders - HI CHOLESTEROL Denies: Hx Valvular Heart Disease Respiratory History: Denies: Hx Asthma, Hx Chronic Obstructive Pulmonary Disease (COPD) GI History: Reports: Hx Gastroesophageal Reflux Disease Denies: Hx Ulcer History: Reports: Hx Benign Prostatic Hyperplasia Musculoskeletal History: Reports: Hx Arthritis - RIGHT KNEE, Other Musculoskeletal History - TORN MENISCUS RIGHT KNEE Sensory History: Reports: Hx Contacts or Glasses Denies: Hx Hearing Aid Opthamlomology History: Reports: Hx Contacts or Glasses - Surgical History Surgery Procedure, Year, and Place: HERNIA REPAIR [id number]. BUNIONECTOMY- RIGHT [id number]- Hx Anesthesia Reactions: No Infectious Disease History: No Infectious Disease History: Denies: Hx Hepatitis, Hx Human Immunodeficiency Virus (HIV), Traveled Outside the [place] in Last 30 Days - Family History Known Family History: Positive: Cardiac Disease, Hypertension - Social History Alcohol Use: None Hx Substance Use: No Substance Use Type: Reports: None Hx Tobacco Use: No Smoking Status (MU): Never Smoked Tobacco Have You Smoked in the Last Year: No Review of Systems Negative: Fever Positive: Myalgia - Right index figner pain, Edema - Right index finger All Other Systems Reviewed And Are Negative: Yes Physical Exam - Summary Physical Exam Summary: VITAL SIGNS: Reviewed. GENERAL: Patient is a well-developed and nourished MALE who is lying comfortable in the stretcher. Patient is not in any acute respiratory distress. HEAD AND FACE: No signs of trauma. No ecchymosis, hematomas or skull depressions. No sinus tenderness. EYES: PERRLA, EOMI x 2, No injected conjunctiva, no nystagmus. EARS: Hearing grossly intact. Ear canals and tympanic membranes are within normal limits. MOUTH: Oropharynx within normal limits. NECK: Supple, trachea is midline, no adenopathy, no JVD, no carotid bruit, no c- spine tenderness, neck with full ROM. CHEST: Symmetric, no tenderness at palpation LUNGS: Clear to auscultation bilaterally. No wheezing or crackles. CVS: Regular rate and rhythm, S1 and S2 present, no murmurs or gallops appreciated. ABDOMEN: Soft, non-tender. No signs of distention. No rebound no guarding, and no masses palpated. Bowel sounds are normal. EXTREMITIES: FROM in all major joints, no cyanosis or clubbing. Right second digit with some swelling and tenderness. No erythema. NEURO: Alert and oriented x 3. No acute neurological deficits. Speech is normal and follows commands. SKIN: Dry and warm Triage Information Reviewed: Yes Vital Signs On Initial Exam: Initial Vitals Temp Pulse Resp BP Pulse Ox 97.3 F 58 15 135/60 98 03/01/18 10:31 03/01/18 10:31 03/01/18 10:31 03/01/18 10:31 03/01/18 10:31 Vital Signs Reviewed: Yes Diagnostics - Vital Signs Vital Signs Temp Pulse Resp BP Pulse Ox 03/01/18 10:31 97.3 F 58 15 135/60 98 - Laboratory Result Diagrams: 03/01/18 10:50 03/01/18 10:50 Lab Statement: Any lab studies that have been ordered have been reviewed, and results considered in the medical decision making process. Re-Evaluation - Re-Evaluation First Eval Re-Evaluation Time: 12:00 Comment: Informed patient of his discharge instructions. Course/Dx - Course Assessment/Plan: This patient is a 62-year-old male who presents to the emergency department with chief complaint of having right second digit with swelling and pain. Patient reports that he had a metal sliver in the tip of the finger which was removed. He went to the urgent care and x-rays were taken and there were no foreign bodies or any fractures. Patient was placed on Keflex but the swelling had increased therefore he came into the emergency room for further workup and management. Blood work without any significant abnormality except for creatinine 1.2, the the WBCs are normal, the CRP is not elevated. Therefore in the ED course, the patient was given Rocephin 1 g IV and the patient was discharged home with a prescription for Bactrim. The patient is to follow-up with primary care physician. He was instructed to elevate his hand as much as he can. At this time I do not believe that the patient has osteomyelitis since his WBCs are normal the CRP is normal. However, I will change the antibiotic to Bactrim for a better coverage. He was instructed to follow up with the primary care physician and will be given a referral for orthopedics for further workup and management. He was given a specific instructions to return to the emergency department he develops fever, increase in swelling, increase in pain, erythema or any other symptom to return immediately to the emergency department for further workup and management. At this time I do not have the impression that he would have tenosynovitis since the patient is able to flex and extend his digit without any pain. At this point the patient understands and agrees. All his concerns were answered and is no further questions. - Diagnoses Differential Diagnosis/HQI/PQRI: Positive: Bursitis, Fracture (Closed), Osteomyelitis, Strain, Sprain Provider Diagnoses: Cellulitis Discharge - Sign-Out/Discharge Documenting (check all that apply): Patient Departure - Discharge - Discharge Plan Condition: Stable Disposition: HOME Prescriptions: Sulfamethox/Trimethoprim DS* [Bactrim DS 800/160 TAB*] 1 tab PO BID #20 tab Patient Education Materials: Cellulitis (ED) Referrals: Sherrell VARGAS,Cristofer Jones [Primary Care Provider] - 3 Days Additional Instructions: FOLLOW UP WITH YOUR PRIMARY CARE PROVIDER WITHIN ONE WEEK FOR HIGH BLOOD PRESSURE NOTED TODAY. RETURN TO THE ED FOR ANY WORSENING OR NEW SYMPTOMS. - Billing Disposition and Condition Condition: STABLE Disposition: Home - Attestation Statements Document Initiated by Scribe: Yes Documenting Scribe: Ese Fischer Provider For Whom Austinibe is Documenting (Include Credential): Emory Wong MD Scribe Attestation: Ese Sawyer, scribed for Emory Wong MD on 03/02/18 at 0746. Scribe Documentation Reviewed: Yes Provider Attestation: The documentation as recorded by the austinibEse robertson accurately reflects the service I personally performed and the decisions made by me, Emory Wong MD
[2018-03-01 10:57] LABS: Hematocrit 46 % (42-52); Hemoglobin 15.4 g/dl (14.0-18.0); Mean Corpuscular HGB Conc 33 g/dl (31-36); Mean Corpuscular Hemoglobin 31 pg (27-31); Mean Corpuscular Volume 91 fL (80-94); Platelet Count 112 10^3/ul (150-450); Red Blood Count 5.05 10^6/ul (4.00-5.40); Red Cell Distribution Width 13 % (10.5-15); White Blood Count 8.3 10^3/ul (3.5-10.8)
[2018-03-01 11:14] LABS: EGFR Non-African American 60.6 (>60)
[2018-03-01 11:20] LABS: ABS Basophils 0 10^3/ul (0-0.2); ABS Eosinophils 0.1 10^3/ul (0-0.6); ABS Lymphocytes 1.2 10^3/ul (1.0-4.8); ABS Monocytes 0.8 10^3/ul (0-0.8); ABS Neutrophils 6.1 10^3/ul (1.5-7.7); ABS Nucleated RBC 0 10^3/ul; Eosinophil % 1.3 % (0-6); Lymphocyte % 14.4 % (25-47); Nucleated Red Blood Cells % 0.1
[2018-03-01 13:01] VITALS: BP 126/73
== END 2018-03-01 12:59 | disposition home or self-care (01) ==
LOC: ED 10:06
DX: L03.011 Cellulitis of right finger (principal); K21.9 Gastro-esophageal reflux disease without esophagitis; E78.00 Pure hypercholesterolemia, unspecified
CPT/HCPCS: 36415; 80053; 83605; 85025; 86140; 87040; 96374; 99282; J0696

== ENCOUNTER 2018-06-04 10:50 | Emergency (ER) | payer BC, OTHER ==
[2018-06-04 11:29] VITALS: BP 136/76
--- NOTE | 2018-06-04 12:00 | UC ---
Respiratory Complaint HPI - HPI Summary HPI Summary: cough x 6 days + chest congestion with productive cough yellow sputum , + nasal congestion , pnd, n no fever, no chills - History of Current Complaint Chief Complaint: UCRespiratory Stated Complaint: COUGH Time Seen by Provider: 06/04/18 11:43 Hx Obtained From: Patient Onset/Duration: Gradual Onset, Lasting Days - 6, Still Present Timing: Constant Severity Initially: Moderate Severity Currently: Moderate Pain Intensity: 0 Pain Scale Used: 0-10 Numeric Character: Cough: Productive Aggravating Factors: Exertion, Deep Breaths Alleviating Factors: Nothing Associated Signs And Symptoms: Positive: URI, Nasal Congestion. Negative: Dyspnea, Fever, Chills, Wheezing, Hemoptysis, Dizziness, Calf Pain, Calf Swelling - Allergies/Home Medications Allergies/Adverse Reactions: Allergies Allergy/AdvReac Type Severity Reaction Status Date / Time latex Allergy Hives Verified 06/04/18 11:16 Home Medications: Home Medications Am Cold Tab 2 tab PO Q12H PRN 06/04/18 [History Confirmed 06/04/18] PMH/Surg Hx/FS Hx/Imm Hx Cardiovascular History: Cardiac Disease, Hypertension, Myocardial Infarction Other History Of: Anticoagulant Therapy - Surgical History Surgical History: Yes Surgery Procedure, Year, and Place: HERNIA REPAIR [id number]. BUNIONECTOMY- RIGHT [id number]-. Cardiac stents 2013 [facility] [place]. abdominal hernia with mesh 2014 - Family History Known Family History: Positive: Cardiac Disease, Hypertension - Social History Alcohol Use: None Substance Use Type: None Smoking Status (MU): Never Smoked Tobacco Have You Smoked in the Last Year: No - Immunization History Most Recent Influenza Vaccination: Fall 2013 Most Recent Tetanus Shot: September 2017 Most Recent Pneumonia Vaccination: NEVER Hx Tetanus, Diphtheria Vaccination: Yes Vaccination Up to Date: Yes Review of Systems All Other Systems Reviewed And Are Negative: Yes Constitutional: Positive: Negative Skin: Positive: Negative Eyes: Positive: Negative ENT: Positive: Nasal Discharge, Sinus Congestion Respiratory: Positive: Cough Cardiovascular: Positive: Negative Gastrointestinal: Positive: Negative Is Patient Immunocompromised?: No Physical Exam Triage Information Reviewed: Yes Appearance: Well-Appearing, No Pain Distress, Well-Nourished Vital Signs: Initial Vital Signs Temp 97.6 F 06/04/18 11:21 Pulse 64 06/04/18 11:21 Resp 16 06/04/18 11:21 BP 136/76 06/04/18 11:21 Pulse Ox 97 06/04/18 11:21 Vital Signs Reviewed: Yes Eye Exam: Normal Eyes: Positive: Conjunctiva Clear ENT: Positive: Normal ENT inspection, Hearing grossly normal, Pharynx normal, Nasal congestion, Nasal drainage, TMs normal. Negative: TM bulging, TM dull, TM red, Tonsillar swelling, Tonsillar exudate Neck: Positive: Supple. Negative: Nontender, No Lymphadenopathy Respiratory Exam: Normal Respiratory: Positive: Chest non-tender, Lungs clear, Normal breath sounds Cardiovascular: Positive: RRR, No Murmur, Pulses Normal UC Diagnostic Evaluation - Laboratory O2 Sat by Pulse Oximetry: 97 Respiratory Course/Dx - Differential Dx/Diagnosis Provider Diagnosis: URI (upper respiratory infection) Discharge - Sign-Out/Discharge Documenting (check all that apply): Patient Departure All imaging exams completed and their final reports reviewed: No Studies - Discharge Plan Condition: Stable Disposition: HOME Prescriptions: Codeine Phosphate/Guaifenesin [Cheratussin AC] 10 ml PO Q8H PRN #120 ml MDD 30 ml PRN Reason: Cough Patient Education Materials: Upper Respiratory Infection (DC) Referrals: Sherrell VARGAS,Cristofer Jones [Primary Care Provider] - 7 Days - Billing Disposition and Condition Condition: STABLE Disposition: Home
== END 2018-06-04 11:54 | disposition home or self-care (01) ==
LOC: UCCORT 10:50
DX: J06.9 Acute upper respiratory infection, unspecified (principal)
CPT/HCPCS: 99212; G0463

== ENCOUNTER 2019-05-18 11:24 | Emergency (ER) | payer MEDICARE, BC ==
--- OUTSIDE RECORDS SUMMARY | 2019-05-18 11:37 | XMS REPORT | Summary of Care ---
:1955 Author Organization [facility] Address [address] [place] [address] Care Team Providers Name Role Phone Jaden Wright MD Primary Care Provider Encounter Details Date Type Department Care Team Description 04/14/2019 Hospital Encounter [facility] maintenance; Laboratory and [facility] at Essential hypertension; [facility] Other hyperlipidemia [address] [place] [address] Allergies Active Allergy Reactions Severity Noted Date Comments Latex Other (See Comments) Low 09/07/2017 blisters Adhesive Tape Itching, Rash Low 05/26/2016 Causes wounds and yellow drainage Ezetimibe Other (See Comments) High 04/14/2019 Chest pain documented as of this encounter (statuses as of 04/15/2019) Medications Medication Sig Dispensed Refills Start Date End Date Status ramipril (ALTACE) 5 MG Take 5 mg by 0 Active capsule mouth daily. metoprolol (LOPRESSOR) Take 250 mg by 0 Active 50 MG tablet mouth Take 150 mg in the AM, take 100 mg in the PM atorvastatin (LIPITOR) Take 80 mg by 0 Active 40 MG tablet mouth daily aspirin EC 81 MG EC Take 81 mg by 0 Active tablet mouth daily. Cholecalciferol (VITAMIN Take 2,000 Units 0 Active D) 2000 UNITS tablet by mouth daily. acetaminophen (TYLENOL) Take 650 mg by 0 Active 325 MG tablet mouth every 6 (six) hours as needed for Pain. amlodipine (NORVASC) 2.5 Take 2.5 mg by 0 Active MG tablet mouth daily magnesium oxide (MAG-OX) Take 2 tablets 0 03/26/2018 Active 400 MG tablet by mouth daily Naproxen Sodium (ALEVE Take by mouth 0 Active PO) daily Pantoprazole Sodium 40 Take 1 tablet by 90 tablet 3 04/14/2019 Active MG Oral Tablet Delayed mouth daily Release (PROTONIX)Indications: Dyspepsia documented as of this encounter (statuses as of 04/15/2019) Active Problems Problem Noted Date Chronic pain of left ankle 04/14/2019 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, bilateral 03/01/2018 Sensorineural hearing loss (SNHL) of both ears 09/18/2017 Overview: 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 He uses hearing protection at work. Pt has been following up with audiology twice a year. He does not wear hearing aids. Hematuria, undiagnosed cause 09/06/2017 PVC (premature ventricular contraction) 08/22/2017 Incisional hernia 05/18/2016 Dyspepsia 05/01/2016 Overview: Heartburn. Describes as sour stomach. 09/2017: Advised to use protonix prn Atherosclerosis of tolowa de[place]-ni' coronary artery of tolowa de[place]-ni' heart without angina 04/03 pectoris Right bundle branch block 03/23/2015 Vitamin deficiency 10/22/2014 Overview: 10/22/14 Start Vit D3, (OTC) 2000 units qd Thrombocytopenia 10/22/2014 Overview: 10/21/14 PLT= 108 Will repeat Last Assessment & Plan: Plts as low as 95 in 2011. Generally stable around 102 Plavix stopped September 2015. REmains on ASA 81mg Lactose intolerance 10/20/2014 Presence of stent in coronary artery in patient with coronary artery 2014 disease Overview: ---See note in Media from [facility]- Thrombectomy & YISEL prox LAD NC 03/26/14- Stent placed- followed by Dr Mccann at [facility] Cardiology. On Plavix for 1 yr. Had no other risk factors other than genetic- strong FH Last Assessment & Plan: NC 03/26/15- Stent placed- followed by Dr Lawrence at [facility] Cardiology. On Plavix for 1 yr. Had no other risk factors other than genetic- strong FH Saw custom shoe designer and maker [place] who cleared him for his hernia surgery. Is now off Plavix but wants him to remain on his ASA 81mg during his surgery. 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 Does not feel he needs meds Umbilical hernia 10/20/2014 Overview: Two past surgical repairs. Last done 2011. Wears a weight belt when lifting at the gym. Surgery done May 2016. Last Assessment & Plan: Dr Espinosa does not want him to come off his ASA bc of his NC. Is now off his Plavix. Health care maintenance 10/20/2014 Overview: Healthcare maintenance - Exercise: Intensive exercise 3-4x wk - Dental: UTD - PSA: 10/19/14 2.6, 09/2017 urology referral for hematuria - Colonoscopy: 2006 in [place], 12/17- benign polyp- [place], Dr Se Mg, Also showed diverticulosis, repeat 5 years - Next Colonoscopy due: 2020 - Pnuemovax: 10/20/14 discussed - Zostovax: rx given 05/01/16 - HIV Test: 10/20/14- neg - HEP C: 10/20/14- neg Never smoker Healthcare Proxy : yes, not in demographics 01/2018 Form in Chart: Code Status Shingrix not covered by his insurance 01/2018 Last Assessment & Plan: Left hand is tingling just beyond the wrist so His custom shoe designer and maker decreased his lipitor to 20mgs bc was also getting crawling feelings in his legs and chest muscle. He initially attributed it to his weig ht lifting. Still gets occas twitching and his hand still tingles. Notices his hand also if puts his elbow on the window in the car with driving. Due for his colonoscopy Umbilical hernia bothers him albina with exercise so is using an elastic band. 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 Hurts with coughing. Has had it repaired twice now. Family history of sudden cardiac 10/20/2014 Overview: Strong FH of early cardiac Hearing loss 10/20/2014 Overview: High pitch loss from work exposure. Does not use hearing aids. Checked annually at work. Essential hypertension 07/02/2014 Primary cardiomyopathy 05/05/2014 Acute myocardial infarction of anterior wall 04/07/2014 Chronic ischemic heart disease 04/07/2014 Hyperlipidemia 04/07/2014 Paroxysmal ventricular tachycardia 04/07/2014 Benign localized hyperplasia of prostate 01/30/2011 Gastroesophageal reflux disease 01/30/2011 Pure hypercholesterolemia 01/30/2011 documented as of this encounter (statuses as of 04/15/2019) Resolved Problems Problem Noted Date Resolved Date Acute deep vein thrombosis (DVT) of popliteal vein of right 09/06/20172017 lower extremity Overview: 08/2017, on rivaroxaban. documented as of this encounter (statuses as of 04/15/2019) Immunizations Name Administration Dates Next Due Influenza Quad IM Pres Free (0.25 mL dose) 03/25/2017 Influenza Quad IM with Pres (0.5 mL dose) 03/13/2016 Influenza Whole 05/15/2014 Td,adult (2-2 tetanus-diphtheria Lf) 06/04/2007, 06/04/2004 Tdap 08/23/2017 documented as of this encounter Social History Tobacco Use Types Packs/Day Years Used Date Never Smoker 0 Smokeless Tobacco: Never Used Alcohol Use Drinks/Week oz/Week Comments No 0 Standard drinks or equivalent 0.0 Sex Assigned at Date Recorded Not on file Job Start Date Occupation Industry Not on file Not on file Not on file Travel History Travel Start Travel End No recent travel history available. documented as of this encounter Last Filed Vital Signs Not on filedocumented in this encounter Plan of Treatment Date Type Specialty Care Team Description 04/19/2020 Office Visit Internal Medicine Jaden Wright MD [place] [address] [phone] Health Maintenance Due Date Last Done Comments MMR Vaccines (1 of 1 - 1956 Standard series) Zoster Vaccines (1 of 2) 2004 Influenza Vaccine 03/04/2019 03/25/2017, 03/13/2016, 05/15/2014 Pneumococcal Vaccine: 65+ 2019 Years (1 of 2 - PCV13) Colon Cancer Screening 10 yrs 12/18/2026 12/18/2016, 07/10/2005 DTaP,Tdap,and Td Vaccines (4 08/24/2027 08/23/2017, - Td) 06/04/2007, 06/04/2004 Hepatitis C Screening (B. Completed 10/20/2014 [id number]) HIB Vaccines Aged Out No longer eligible based on patient's age to complete this topic Hepatitis A Vaccines Aged Out No longer eligible based on patient's age to complete this topic Hepatitis B Vaccines Aged Out No longer eligible based on patient's age to complete this topic IPV Vaccines Aged Out No longer eligible based on patient's age to complete this topic Pneumococcal Vaccine: Aged Out No longer eligible based Pediatrics (0 to 5 Years) and on patient's age to At-Risk Patients (6 to 64 complete this topic Years) Varicella Vaccines Aged Out No longer eligible based on patient's age to complete this topic documented as of this encounter Goals Goal Patient Goal Associated Recent Patient-Stated? Author Type Problems Progress Exercise an Lifestyle No [place], average of 30 Johnathon minutes 5-7 times a week Weight (lb) < Weight 103.4 kg (228 Yes Swarnkar, 95.3 kg (210 lb) Cristofer Barba MD lb) (04/14/2019 8:52 AM EST) documented as of this encounter Implants Implanted Type Area Milling Machine Operator Device Shelf Model / Identifier Expiration Date Serial / Lot Mesh Ultrapro Flat 6x6 - Sna N/A: Abdomen [employer] 03/03/2021 [id number] / Implanted: Qty: 1 on 05/18/2016 by Rita Thao MD at OR 5E NA / [id number] documented as of this encounter Procedures Procedure Name Priority Date/Time Associated Diagnosis Comments PSA Routine 04/14/2019 10:27 Health care maintenance Results for this AM EST procedure are in the results section. LIPID PANEL Routine 04/14/2019 10:27 Other hyperlipidemia Results for this AM EST procedure are in the results section. BASIC METABOLIC Routine 04/14/2019 10:27 Essential hypertension Results for this PANEL AM EST procedure are in the results section. documented in this encounter Results Lipid panel (04/14/2019 10:27 AM EST) Cholesterol 140 <200 mg/dL [facility] Triglyceride 56 <150 mg/dL [facility] HDL Cholesterol 50 >40 mg/dL [facility] LDL Cholesterol 79 <100 mg/dL [facility] VLDL Cholesterol 11 (L) 16 - 42 mg/dl [facility] Non HDL Cholesterol 90 <130 mg/dL [facility] Specimen Plasma Performing Organization Address [facility] Phone Number [facility] [address], [place] [phone] [facility] [address] [place] [address] Pathology Basic metabolic panel (04/14/2019 10:27 AM EST) Bicarbonate 26 22 - 29 mmol/L [facility] Chloride 102 98 - 107 mmol/L [facility] Creatinine 1.30 (H) 0.70 - 1.20 [facility] mg/dL [facility] Glucose 100 70 - 140 mg/dL [facility] Potassium 4.8 3.4 - 5.1 [facility] mmol/L [facility] Sodium 140 136 - 145 [facility] mmol/L [facility]ology Blood Urea Nitrogen 25 (H) 8 - 23 mg/dL [facility]ology Anion Gap 12 8 - 15 mmol/L [facility] Osmolality, Yvan 294 275 - 300 [facility] mosm/kg [facility]ology BUN/Cre Ratio 19 [facility]ology Calcium 9.2 8.8 - 10.2 [facility] mg/dL [facility] GFR Non 56 (L) >60 [facility] Pakistani 2008 CDK-EPI mL/min/1.73m2 [facility] GFR 65 >60 [facility] 2008 CKD-EPI mL/min/1.73m2 [facility] Pathology Specimen Plasma Performing Organization Address [facility] Phone Number [facility] [address] [place] [address] [facility] [address] [place] [address] Pathology PSA (04/14/2019 10:27 AM EST) PSA Total 4.0 (H) <4.0 ng/mL [facility] Comment: [facility] Serum levels of PSA should not be interpreted as absolute evidence of the presence or absence of Cancer. Results obtained with different methods cannot be used interchangeably. This method is manufactured by [employer] and is an Pathology electrochemiluminesence immunoassay. Specimen Plasma Performing Organization Address [facility] Phone Number [facility] [address] [place] [address] [phone] [facility] [address] [place] [address] Pathology documented in this encounter Visit Diagnoses Diagnosis Health care maintenance Unspecified general medical examination Essential hypertension Unspecified essential hypertension Other hyperlipidemia documented in this encounter
--- OUTSIDE RECORDS SUMMARY | 2019-05-18 11:37 | XMS REPORT | Summary of Care ---
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 Pathology Creatinine 1.30 (H) 0.70 - 1.20 [facility] mg/dL [facility] Pathology Glucose 100 70 - 140 mg/dL [facility] Pathology Potassium 4.8 3.4 - 5.1 [facility] mmol/L [facility] Sodium 140 136 - 145 [facility] mmol/L [facility] Pathology Blood Urea Nitrogen 25 (H) 8 - 23 mg/dL [facility] Pathology Anion Gap 12 8 - 15 mmol/L [facility] Pathology Osmolality, Yvan 294 275 - 300 [facility] mosm/kg [facility] Pathology BUN/Cre Ratio 19 [facility] Pathology Calcium 9.2 8.8 - 10.2 [facility] mg/dL [facility] Pathology GFR Non 56 (L) >60 [facility] Romanian 2009 CDK-EPI mL/min/1.73m2 [facility] Pathology GFR 65 >60 [facility] 2009 CKD-EPI mL/min/1.73m2 [facility] Pathology Specimen Plasma Performing Organization Address City/[facility]/Zipcode Phone Number [facility] [address] [place] [address] [phone] [facility] [address] [place] [address] Pathology PSA (04/14/2019 10:27 AM EST) PSA Total 4.0 (H) <4.0 ng/mL [facility] Comment: Univ Clin Serum levels of PSA should not be interpreted as absolute evidence of the presence or absence of Cancer. Results obtained with different methods cannot be used interchangeably. This method is manufactured by [employer] and is an Pathology electrochemiluminesence immunoassay. Specimen Plasma Performing Organization Address [facility] Phone Number [facility] [address] [place] [address] [facility] [address] [place] [id number] Pathology documented in this encounter Visit Diagnoses Diagnosis Atherosclerosis of [place] coronary artery of [place] heart without angina pectoris - Primary Lactose intolerance Intestinal disaccharidase deficiencies and disaccharide malabsorption Presence of stent in coronary artery in patient with coronary artery disease Health care maintenance Unspecified general medical examination Vitamin deficiency Unspecified vitamin deficiency Sensorineural hearing loss (SNHL) of both ears 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
[2019-05-18 12:23] LABS: ABS Eosinophils 0.1 10^3/ul (0-0.6); ABS Lymphocytes 0.9 10^3/ul (1.0-4.8); ABS Monocytes 0.6 10^3/ul (0-0.8); ABS Neutrophils 7.2 10^3/ul (1.5-7.7); Hematocrit 45 % (42-52); Hemoglobin 15.5 g/dL (14.0-18.0); Lymphocyte % 10.3 %; Mean Corpuscular HGB Conc 34 g/dL (31-36); Mean Corpuscular Hemoglobin 31 pg (27-31); Mean Corpuscular Volume 91 fL (80-94); Mean Platelet Volume 11.2 fL (7.4-10.4); Nucleated Red Blood Cells % 0.1; Platelet Count 108 10^3/uL (150-450); Red Blood Count 4.93 10^6 /uL (4.18-5.48); Red Cell Distribution Width 13 % (10-15); White Blood Count 8.8 10^3/uL (3.5-10.8)
[2019-05-18 12:40] LABS: Albumin 3.9 g/dL (3.2-5.2); Albumin/Globulin Ratio 1.6 (1-3); BUN/Creatinine Ratio 18.4 (8-20); Calcium 9.6 mg/dL (8.6-10.3); EGFR Non-African American 50.4 (>60); Globulin 2.5 g/dL (2-4); Magnesium 1.8 mg/dL (1.9-2.7); Potassium 4.7 mmol/L (3.5-5.0); Total Protein 6.4 g/dL (6.4-8.9)
[2019-05-18 12:42] LABS: Troponin I 0.01 ng/mL (<0.03)
[2019-05-18] MEDS ORDERED: Magnesium Sulfate 2 GM IV* 2 GM/50 ML BAG IVPB ONE (12:47)
--- NOTE | 2019-05-18 13:50 | ED ---
HPI Cardiac - HPI Summary HPI Summary: The pt is a 64 yr old male [facility]/o elevated heart rate beginning earlier today. He states that his heart rate is normally around 50 bpm but today it went up to 101 bpm. He had a heart attack in 2013 and two weeks later had a similar increase in heart rate. He notes that his heart shoots extra beats when it slows down. He rates his current pain severity a 0/ 10. No aggravating or alleviating factors noted. He also reports diarrhea and abd pain. - History of Current Complaint Chief Complaint: EDDysrhythmPalp Stated Complaint: RAPID HEART RATE Time Seen by Provider: 05/18/19 11:50 Hx Obtained From: Patient Onset/Duration: Started Hours Ago, Resolved Timing: Intermittent, Lasting Minutes Initial Severity: Mild Current Severity: None Pain Intensity: 0 Pain Scale Used: 0-10 Numeric Aggravating Factor(s): Nothing Alleviating Factor(s): Nothing Associated Signs and Symptoms: Positive: Abdominal Pain, Other: - pos - increased heart rate, diarrhea - Allergy/Home Medications Allergies/Adverse Reactions: Allergies Allergy/AdvReac Type Severity Reaction Status Date / Time latex Allergy Hives Verified 05/18/19 12:40 PMH/Surg Hx/FS Hx/Imm Hx Endocrine/Hematology History: Reports: Hx Anticoagulant Therapy Denies: Hx Diabetes, Hx Thyroid Disease Cardiovascular History: Reports: Hx Angina, Hx Coronary Artery Disease, Hx Hypercholesterolemia, Hx Hypertension, Hx Myocardial Infarction, Other Cardiovascular Problems/Disorders - HI CHOLESTEROL Denies: Hx Pacemaker/ICD, Hx Valvular Heart Disease Respiratory History: Denies: Hx Asthma, Hx Chronic Obstructive Pulmonary Disease (COPD) GI History: Reports: Hx Gastroesophageal Reflux Disease Denies: Hx Ulcer History: Reports: Hx Benign Prostatic Hyperplasia Denies: Hx Chronic Renal Failure Musculoskeletal History: Reports: Hx Arthritis - RIGHT KNEE, Other Musculoskeletal History - TORN MENISCUS RIGHT KNEE Sensory History: Reports: Hx Contacts or Glasses Denies: Hx Hearing Aid Opthamlomology History: Reports: Hx Contacts or Glasses - Surgical History Surgery Procedure, Year, and Place: HERNIA REPAIR [id number]. BUNIONECTOMY- RIGHT [id number] Cardiac stents 2013 [facility]. abdominal hernia with mesh 2014 Hx Anesthesia Reactions: No - Immunization History Date of Tetanus Vaccine: september 2016 Date of Influenza Vaccine: 2018 Immunizations Up to Date: Yes Infectious Disease History: No Infectious Disease History: Denies: Hx Hepatitis, Hx Human Immunodeficiency Virus (HIV), Traveled Outside the [place] in Last 30 Days - Family History Known Family History: Positive: Cardiac Disease, Hypertension - Social History Alcohol Use: None Hx Substance Use: No Substance Use Type: Reports: None Hx Tobacco Use: No Smoking Status (MU): Never Smoked Tobacco Have You Smoked in the Last Year: No Review of Systems Cardiovascular: Other - pos - increased heart rate Positive: Abdominal Pain, Diarrhea All Other Systems Reviewed And Are Negative: Yes Physical Exam - Summary Physical Exam Summary: Constitutional: Well-developed, Well-nourished, Alert. (-) Distressed Skin: Warm, Dry HENT: Normocephalic; Atraumatic Eyes: Conjunctiva normal Neck: Musculoskeletal ROM normal neck. (-) JVD, (-) Stridor, (-) Tracheal deviation Cardio: Rhythm regular, rate normal, Heart sounds normal; Intact distal pulses; Radial pulses are 2+ and symmetric. (-) Murmur, multiple premature beats obvious QRS complex Pulmonary/Chest wall: Effort normal. (-) Respiratory distress, (-) Wheezes, (-) Rales Abd: Soft, (-) tenderness, (-) Distension, (-) Guarding, (-) Rebound Musculoskeletal: (-) Edema Lymph: (-) Cervical adenopathy Neuro: Alert, Oriented x3 Psych: Mood and affect Normal Triage Information Reviewed: Yes Vital Signs On Initial Exam: Initial Vitals Temp Pulse Resp BP Pulse Ox 97.0 F 88 18 176/92 100 05/18/19 11:34 05/18/19 11:34 05/18/19 11:34 05/18/19 11:34 05/18/19 11:34 Vital Signs Reviewed: Yes Procedures - Sedation Patient Received Moderate/Deep Sedation with Procedure: No Diagnostics - Vital Signs Vital Signs Temp Pulse Resp BP Pulse Ox 05/18/19 13:00 44 12 98 05/18/19 12:57 56 23 136/70 96 05/18/19 12:26 51 16 150/84 98 05/18/19 12:24 19 05/18/19 11:34 97.0 F 88 18 176/92 100 - Laboratory Lab Results: Lab Results 05/18/19 05/18/19 05/18/19 Range/Units 12:16 12:16 12:16 WBC 8.8 (3.5-10.8) 10^3/uL RBC 4.93 (4.18-5.48) 10^6 /uL Hgb 15.5 (14.0-18.0) g/dL Hct 45 (42-52) % MCV 91 (80-94) fL MCH 31 (27-31) pg MCHC 34 (31-36) g/dL RDW 13 (10-15) % Plt Count 108 L (150-450) 10^3/uL MPV 11.2 H (7.4-10.4) fL Neut % (Auto) 81.4 % Lymph % (Auto) 10.3 % [place] % (Auto) 6.9 % Eos % (Auto) 1.0 % Baso % (Auto) 0.4 % Absolute Neuts (auto) 7.2 (1.5-7.7) 10^3/ul Absolute Lymphs (auto) 0.9 L (1.0-4.8) 10^3/ul Absolute Monos (auto) 0.6 (0-0.8) 10^3/ul Absolute Eos (auto) 0.1 (0-0.6) 10^3/ul Absolute Basos (auto) 0.0 (0-0.2) 10^3/ul Absolute Nucleated RBC 0.0 10^3/ul Nucleated RBC % 0.1 Sodium 141 (135-145) mmol/L Potassium 4.7 (3.5-5.0) mmol/L Chloride 107 (101-111) mmol/L Carbon Dioxide 28 (22-32) mmol/L Anion Gap 6 (2-11) mmol/L BUN 26 H (6-24) mg/dL Creatinine 1.41 H (0.67-1.17) mg/dL Est GFR ( Amer) 61.0 (>60) Est GFR (Non-Af Amer) 50.4 (>60) BUN/Creatinine Ratio 18.4 (8-20) Glucose 108 H (70-100) mg/dL Calcium 9.6 (8.6-10.3) mg/dL Magnesium 1.8 L (1.9-2.7) mg/dL Total Bilirubin 1.00 (0.2-1.0) mg/dL AST 25 (13-39) U/L ALT 32 (7-52) U/L Alkaline Phosphatase 76 (34-104) U/L Troponin I 0.01 (<0.03) ng/mL B-Natriuretic Peptide 500 H (<=100) pg/mL Total Protein 6.4 (6.4-8.9) g/dL Albumin 3.9 (3.2-5.2) g/dL Globulin 2.5 (2-4) g/dL Albumin/Globulin Ratio 1.6 (1-3) Result Diagrams: 05/18/19 12:16 05/18/19 12:16 Lab Statement: Any lab studies that have been ordered have been reviewed, and results considered in the medical decision making process. - EKG 1128 Cardiac Rate: Other Rate - afib EKG Rhythm: Atrial Fibrillation - 88 bpm Summary of EKG Findings: An EKG at 1128 reveals A-fib @ 88 bpm, LAFB, multiple PVCS, no obvious P waves, unchanged from 08/21/17. Re-Evaluation - Re-Evaluation First Eval Re-Evaluation Time: 14:15 Change: Improved Comment: Pt finishes magnesium, is feeling better and is asymptomatic, there seems to be less ectopy on monitor. Disposition - Course Course Of Treatment: Patient is here with an episode of tachycardia following a night of diarrhea last night. Patient has a history of multiple premature beats and takes magnesium empirically for that. Patient last stress test in September which was negative for any ischemic changes but he did have some ventricular tachycardia at his peak heart rate. Patient is on multiple rate controlling medications which she did not take yesterday which probably exacerbated his symptoms. Patient was not tachycardic upon arrival here. Patient is overall well-appearing. Patient was having a lot of ectopic beats on monitor. Patient's EKG did not have obvious P waves but his monitor had very obvious P waves. Patient able to perform a showed borderline hypomagnesemia and he is given 2 g of IV magnesium with vast improvement in his ectopy. Patient was discharged with instructions to follow up with his microbiology technologist and to continue his magnesium - Diagnoses Provider Diagnoses: Ectopic beats, Diarrhea, Hypomagnesemia Discharge ED - Sign-Out/Discharge Documenting (check all that apply): Patient Departure - discharge - Discharge Plan Condition: Stable Disposition: HOME Patient Education Materials: Acute Diarrhea (ED), Premature Ventricular Contractions (ED) Referrals: [facility] [Outside] - 3 Days Additional Instructions: Please follow up with your primary care provider within 3 days. Please return to the ED for any new or worsening symptoms. - Billing Disposition and Condition Condition: STABLE Disposition: Home - Attestation Statements Document Initiated by Jonh: Yes Documenting Scribe: Tu Roblero Provider For Whom Jonh is Documenting (Include Credential): Alvin Molina MD Scribe Attestation: ITu, scribed for Alvin Molina MD on 05/18/19 at 1436. Scribe Documentation Reviewed: Yes Provider Attestation: The documentation as recorded by the Tu lopez accurately reflects the service I personally performed and the decisions made by me, Alvin Molina MD Status of Scribe Document: Viewed
[2019-05-18 14:40] VITALS: BP 125/71
== END 2019-05-18 14:48 | disposition home or self-care (01) ==
LOC: ED 11:24
DX: I49.49 Other premature depolarization (principal); R19.7 Diarrhea, unspecified; E83.42 Hypomagnesemia; I48.91 Unspecified atrial fibrillation; I10 Essential (primary) hypertension; E78.00 Pure hypercholesterolemia, unspecified; K21.9 Gastro-esophageal reflux disease without esophagitis; I25.2 Old myocardial infarction; Z95.5 Presence of coronary angioplasty implant and graft; Z79.82 Long term (current) use of aspirin; Z79.01 Long term (current) use of anticoagulants; Z91.040 Latex allergy status; Z82.49 Family history of ischemic heart disease and other diseases of the circulatory system
CPT/HCPCS: 36415; 80053; 83735; 83880; 84484; 85025; 93005; 96365; 99283; J3475

== ENCOUNTER 2022-02-04 16:36 | Observation (INO) ==
[2022-02-04 17:11] LABS: ABS Eosinophils 0.1 10^3/ul (0-0.6); ABS Lymphocytes 1.1 10^3/ul (1.0-4.8); ABS Monocytes 0.8 10^3/ul (0-0.8); Eosinophil % 1.2 %; Hematocrit 47 % (42-52); Hemoglobin 15.2 g/dL (14.0-18.0); Lymphocyte % 15.7 %; Mean Corpuscular HGB Conc 33 g/dL (31-36); Mean Corpuscular Hemoglobin 31 pg (27-31); Mean Corpuscular Volume 94 fL (80-94); Mean Platelet Volume 10.2 fL (7.4-10.4); Platelet Count 110 10^3/uL (150-450); Red Blood Count 4.96 10^6 /uL (4.18-5.48); Red Cell Distribution Width 13 % (10-15)
[2022-02-04 17:16] LABS: INR 1.21 (0.89-1.11)
[2022-02-04 18:38] LABS: Albumin 4.2 g/dL (3.2-5.2); Albumin/Globulin Ratio 1.8 (1-3); Calcium 9.1 mg/dL (8.6-10.3); Globulin 2.3 g/dL (2-4); Potassium 4.6 mmol/L (3.5-5.0); Total Protein 6.5 g/dL (6.4-8.9)
[2022-02-04 19:07] LABS: High Sensitivity Troponin 1 Hr 69 pg/mL (<20)
[2022-02-04] MEDS ORDERED: NS 0.9% 1000 ml BAG 1,000 ML IV ONE (20:24)
[2022-02-04] MEDS ORDERED: Magnesium Sulfate 2 gm BAG 2 GM/50 ML BAG IVPB ONE (20:25)
[2022-02-04] MEDS ORDERED: Aspirin EC 81 mg TAB.EC (enteric coated) PO SCH (21:00)
[2022-02-04 21:02] LABS: Magnesium 1.8 mg/dL (1.9-2.7)
[2022-02-04] MEDS ORDERED: NS 0.9% 1000 ml BAG 1,000 ML IV SCH (21:30)
[2022-02-05 06:51] LABS: Calcium 8.5 mg/dL (8.6-10.3); Magnesium 2.2 mg/dL (1.9-2.7); Potassium 4.1 mmol/L (3.5-5.0)
[2022-02-05] MEDS ORDERED: Influenza vaccine *QUAD* *2022-23* 0.5 ML SYRINGE IM ONE (09:00)
[2022-02-05 12:01] VITALS: BP 122/78
== END 2022-02-05 14:52 | disposition home or self-care (01) ==
LOC: ED 16:36 → MEDTELE 23:11 → SUATTDRO 23:18 → MEDTELE 23:18 → INTOOBSV 23:18
PROVIDERS: ADMIT Internal Medicine; ATTEND Internal Medicine